=== PATIENT | male | born 1975 | race Two or more races ===

== ENCOUNTER 2017-12-16 08:14 | Outpatient (CLI) | payer OTHER | END 2017-12-16 08:26 | disposition home or self-care (01) | LOC: RAD 501 08:14 | DX: Z13.89 Encounter for screening for other disorder (principal); R06.02 Shortness of breath; Z13.220 Encounter for screening for lipoid disorders; F41.8 Other specified anxiety disorders ==

== ENCOUNTER 2018-08-17 09:29 | Outpatient (CLI) | payer OTHER | END 2018-08-17 09:32 | disposition home or self-care (01) | LOC: SONOGRAMA 09:29 | DX: N45.3 Epididymo-orchitis (principal); I86.1 Scrotal varices ==

== ENCOUNTER 2022-09-29 09:42 | Outpatient (CLI) | payer OTHER | END 2022-09-29 09:55 | disposition home or self-care (01) | LOC: MRI 09:42 | PROVIDERS: ATTEND General Practice | DX: M25.512 Pain in left shoulder (principal) | CPT/HCPCS: 73221 ==